=== PATIENT | female | born 1970 | race Caucasian/White ===

== ENCOUNTER 2017-07-17 10:48 | Emergency (ER) | payer MEDICAID ==
[~2017-07-17] VITALS: Ht 162.6 cm; Wt 86.0 kg
[~2017-07-17 10:48] MED LIST: ALBU6.7H INH; BACL10TA2 PO; DIPH1TAB PO; DOCU-28 PO; DULO60CA45 PO; GABA-532 PO; IBUP-1986 PO; LEVA15HF4 INH; LORA1TAB PO; MIRT15TA PO; MORP30CA16 PO; OMEP40CA37 PO; OXYC30TA88 PO; PHE12.5T PO; TEMA30CA5 PO; TOPI100T18 PO; ZIPR60CA2 PO; ZIPR80CA2 PO
[2017-07-17] MEDS ORDERED: ketorolac trometh inj. 60 MG/2 ML VIAL IM ONE (12:30)
[2017-07-17] MEDS ORDERED: bacitracin 15gm ointment TP ONE (13:20)
[2017-07-17 13:30] VITALS: BP 137/93
== END 2017-07-17 13:33 | disposition home or self-care (01) ==
LOC: ER 10:49
DX: T23.202A Burn of second degree of left hand, unspecified site, initial encounter (principal); M94.0 Chondrocostal junction syndrome [Tietze]; J44.9 Chronic obstructive pulmonary disease, unspecified; M19.90 Unspecified osteoarthritis, unspecified site; G89.29 Other chronic pain; F12.10 Cannabis abuse, uncomplicated; Z90.710 Acquired absence of both cervix and uterus; Z56.0 Unemployment, unspecified; Z88.8 Allergy status to other drugs, medicaments and biological substances; Z79.899 Other long term (current) drug therapy; X12.XXXA Contact with other hot fluids, initial encounter; Y93.89 Activity, other specified; Y92.89 Other specified places as the place of occurrence of the external cause; Y99.8 Other external cause status
CPT/HCPCS: 16020; 93005; 96372; 99284; A6446; J1885

== ENCOUNTER 2017-09-11 10:41 | Emergency (ER) | payer MEDICAID ==
[~2017-09-11] VITALS: Ht 165.1 cm; Wt 90.0 kg
[2017-09-11] MEDS ORDERED: ketorolac trometh inj. 60 MG/2 ML VIAL IM ONE (12:25)
[2017-09-11] MEDS ORDERED: LORazepam 2 mg/ml vial IM ONE (12:25)
[2017-09-11] MEDS ORDERED: diphenhydrAMINE 50 mg/ml inj IM ONE (12:25)
[2017-09-11 13:15] VITALS: BP 138/78
== END 2017-09-11 13:28 | disposition home or self-care (01) ==
LOC: ER 10:41
DX: M79.645 Pain in left finger(s) (principal); R51 Headache; J44.9 Chronic obstructive pulmonary disease, unspecified; M19.90 Unspecified osteoarthritis, unspecified site; F12.10 Cannabis abuse, uncomplicated; G89.29 Other chronic pain; Z90.710 Acquired absence of both cervix and uterus; Z56.0 Unemployment, unspecified; Z86.19 Personal history of other infectious and parasitic diseases; Z88.8 Allergy status to other drugs, medicaments and biological substances; Z79.899 Other long term (current) drug therapy
CPT/HCPCS: 70450; 73140; 96372; 99284; J1200; J1885; J2060

== ENCOUNTER 2017-11-18 10:20 | Emergency (ER) | payer MEDICAID ==
[~2017-11-18] VITALS: Ht 162.6 cm; Wt 89.0 kg
[2017-11-18] MEDS ORDERED: ketorolac trometh inj. 60 MG/2 ML VIAL IM ONE (12:00)
[2017-11-18] MEDS ORDERED: ketorolac trometh. 30mg/ml inj. ONE (12:03)
[2017-11-18 12:16] VITALS: BP 162/69
== END 2017-11-18 12:18 | disposition home or self-care (01) ==
LOC: ER 10:20
DX: S90.01XA Contusion of right ankle, initial encounter (principal); M25.461 Effusion, right knee; M17.11 Unilateral primary osteoarthritis, right knee; J44.9 Chronic obstructive pulmonary disease, unspecified; G89.29 Other chronic pain; F12.10 Cannabis abuse, uncomplicated; Z86.19 Personal history of other infectious and parasitic diseases; Z90.710 Acquired absence of both cervix and uterus; Z56.0 Unemployment, unspecified; Z98.890 Other specified postprocedural states; Z88.8 Allergy status to other drugs, medicaments and biological substances; Z79.899 Other long term (current) drug therapy; W18.39XA Other fall on same level, initial encounter; Y93.89 Activity, other specified; Y92.89 Other specified places as the place of occurrence of the external cause; Y99.8 Other external cause status
CPT/HCPCS: 73564; 73610; 96372; 99284; J1885

== ENCOUNTER 2018-03-29 11:30 | Emergency (ER) | payer MEDICAID ==
[~2018-03-29] VITALS: Ht 162.6 cm; Wt 90.6 kg
[~2018-03-29 11:30] MED LIST changes: +BUPR1FIL17 SL; +CLON-527 PO; -DIPH1TAB PO; -LORA1TAB PO; -MORP30CA16 PO; -OMEP40CA37 PO; -OXYC30TA88 PO; +PANT-47 PO; -PHE12.5T PO; -TEMA30CA5 PO; +TRAM50TA2 PO; +ZIPR20CA2 PO; +ZIPR40CA2 PO; -ZIPR60CA2 PO; -ZIPR80CA2 PO
[2018-03-29 11:33] VITALS: BP 118/76
[2018-03-29] MEDS ORDERED: HYDROcodone/acetaminophen 10/325mg tab PO ONE (11:45)
[2018-03-29] MEDS ORDERED: TRAM50TA2 PO (12:29)
== END 2018-03-29 12:50 | disposition home or self-care (01) ==
LOC: ER 11:30
DX: M25.511 Pain in right shoulder (principal); J44.9 Chronic obstructive pulmonary disease, unspecified; M19.90 Unspecified osteoarthritis, unspecified site; G89.29 Other chronic pain; F12.90 Cannabis use, unspecified, uncomplicated; Z90.710 Acquired absence of both cervix and uterus; Z56.0 Unemployment, unspecified; Z88.8 Allergy status to other drugs, medicaments and biological substances
CPT/HCPCS: 73030; 99284

== ENCOUNTER 2018-04-05 06:33 | Emergency (ER) | payer MEDICAID ==
[~2018-04-05] VITALS: Ht 162.6 cm; Wt 88.6 kg
[2018-04-05] MEDS ORDERED: SUMAtriptan succ. 6 MG/0.5ml vial SQ ONE (07:20)
[2018-04-05 07:32] VITALS: BP 134/74
== END 2018-04-05 07:35 | disposition home or self-care (01) ==
LOC: ER 06:34
DX: S40.021A Contusion of right upper arm, initial encounter (principal); S43.401A Unspecified sprain of right shoulder joint, initial encounter; G43.909 Migraine, unspecified, not intractable, without status migrainosus; J44.9 Chronic obstructive pulmonary disease, unspecified; M19.90 Unspecified osteoarthritis, unspecified site; G89.29 Other chronic pain; F12.90 Cannabis use, unspecified, uncomplicated; Z90.710 Acquired absence of both cervix and uterus; Z98.890 Other specified postprocedural states; Z56.0 Unemployment, unspecified; Z88.8 Allergy status to other drugs, medicaments and biological substances; Z79.899 Other long term (current) drug therapy; W01.190A Fall on same level from slipping, tripping and stumbling with subsequent striking against furniture, initial encounter; Y93.89 Activity, other specified; Y92.003 Bedroom of unspecified non-institutional (private) residence as the place of occurrence of the external cause; Y99.8 Other external cause status
CPT/HCPCS: 29105; 99284; A4565; J3030

== ENCOUNTER 2018-05-01 03:17 | Emergency (ER) | payer MEDICAID ==
[~2018-05-01] VITALS: Ht 162.6 cm; Wt 86.0 kg
[~2018-05-01 03:17] MED LIST changes: -ALBU6.7H INH; +ALBU8.5H8 IH; -BUPR1FIL17 SL; +DIPH25CA83 PO; +HYDR-4353 PO; -IBUP-1986 PO; +LACT1CAP65 PO; +MELA3TAB PO; +PREN1TAB75 PO; +SUCR1TAB PO; -TRAM50TA2 PO
[2018-05-01 03:21] VITALS: BP 127/82
== END 2018-05-01 04:27 | disposition home or self-care (01) ==
LOC: ER 03:17
DX: S81.011A Laceration without foreign body, right knee, initial encounter (principal); M96.831 Postprocedural hemorrhage of a musculoskeletal structure following other procedure; J44.9 Chronic obstructive pulmonary disease, unspecified; M19.90 Unspecified osteoarthritis, unspecified site; G89.29 Other chronic pain; F12.90 Cannabis use, unspecified, uncomplicated; Z56.0 Unemployment, unspecified; Z90.710 Acquired absence of both cervix and uterus; Z98.890 Other specified postprocedural states; Z88.8 Allergy status to other drugs, medicaments and biological substances; Z79.899 Other long term (current) drug therapy; X58.XXXA Exposure to other specified factors, initial encounter; Y93.89 Activity, other specified; Y92.89 Other specified places as the place of occurrence of the external cause; Y99.9 Unspecified external cause status
CPT/HCPCS: 12001; 99284

== ENCOUNTER 2018-07-25 03:56 | Emergency (ER) | payer MEDICAID ==
[~2018-07-25] VITALS: Ht 162.6 cm; Wt 87.3 kg
[~2018-07-25 03:56] MED LIST changes: +TOP100T PO; -TOPI100T18 PO
[2018-07-25 04:00] VITALS: BP 125/89
[2018-07-25] MEDS ORDERED: acetaminophen 325mg tablet PO ONE (04:20)
[2018-07-25] MEDS ORDERED: proCHLORperazine 10 MG/2 ml inj IM ONE (04:20)
[2018-07-25] MEDS ORDERED: ketorolac trometh inj. 60 MG/2 ML VIAL IM ONE (04:20)
[2018-07-25] MEDS ORDERED: ondansetron 4mg rapidly disintigrating tab PO ONE (05:30)
[2018-07-25] MEDS ORDERED: ONDA8TAB6 PO (05:31)
== END 2018-07-25 05:44 | disposition home or self-care (01) ==
LOC: ER 03:56
DX: R51 Headache (principal); G89.29 Other chronic pain; M25.511 Pain in right shoulder; J44.9 Chronic obstructive pulmonary disease, unspecified; M19.90 Unspecified osteoarthritis, unspecified site; F12.90 Cannabis use, unspecified, uncomplicated; F17.200 Nicotine dependence, unspecified, uncomplicated; Z90.710 Acquired absence of both cervix and uterus; Z98.890 Other specified postprocedural states; Z56.0 Unemployment, unspecified; Z88.8 Allergy status to other drugs, medicaments and biological substances; Z79.899 Other long term (current) drug therapy
CPT/HCPCS: 29105; 96372; 99283; J0780; J1885

== ENCOUNTER 2018-08-03 15:18 | Emergency (ER) | payer MEDICAID ==
[~2018-08-03] VITALS: Ht 162.6 cm; Wt 88.7 kg
[~2018-08-03 15:18] MED LIST changes: +ONDA8TAB6 PO
[2018-08-03 15:28] VITALS: BP 125/80
--- NOTE | 2018-08-03 20:25 | NUR ---
NO RESPONSE FROM LOBBY AFTER 3 ATTEMPTS TO ROOM, CALL PLACED TO NUMBER ON FILE. MESSAGE LEFT EXPRESSING CONCERN FOR WELL BEING, AND ENCOURAGEMENT TO RETURN FOR EVALUATION. DR GOINS INFORMED
== END 2018-08-03 20:35 | disposition left against medical advice (07) ==
LOC: ER 15:19
DX: E86.0 Dehydration (principal); Z53.21 Procedure and treatment not carried out due to patient leaving prior to being seen by health care provider

== ENCOUNTER 2018-08-07 07:10 | Emergency (ER) | payer MEDICAID ==
[~2018-08-07] VITALS: Ht 162.6 cm; Wt 86.4 kg
[2018-08-07] MEDS ORDERED: PROC5TAB56 PO (08:38)
[2018-08-07] MEDS ORDERED: HYDR-3965 PO (08:38)
[2018-08-07] MEDS ORDERED: SUMA25TA35 PO (08:38)
[2018-08-07] MEDS ORDERED: dexamethasone sod phosphate 10mg/ml inj IV STA (08:39)
[2018-08-07] MEDS ORDERED: proCHLORperazine 10 MG/2 ml inj IV ONE (08:40)
[2018-08-07] MEDS ORDERED: diphenhydrAMINE 50 mg/ml inj IV ONE (08:40)
[2018-08-07] MEDS ORDERED: normal saline 1000ML IV soln IVB ONE (08:40)
[2018-08-07] MEDS ORDERED: SUMAtriptan succ. 6 MG/0.5ml vial SQ ONE (08:40)
[2018-08-07] MEDS ORDERED: ketorolac tromethamine 15mg/ml inj. IV ONE (08:40)
[2018-08-07] MEDS ORDERED: HYDROcodone/acetaminophen 5mg/325mg tablet PO ONE (08:45)
[2018-08-07 08:54] VITALS: BP 123/85
== END 2018-08-07 09:58 | disposition home or self-care (01) ==
LOC: ER 07:11
DX: G43.909 Migraine, unspecified, not intractable, without status migrainosus (principal); G89.29 Other chronic pain; M25.511 Pain in right shoulder; M25.561 Pain in right knee; H53.149 Visual discomfort, unspecified; J44.9 Chronic obstructive pulmonary disease, unspecified; M19.90 Unspecified osteoarthritis, unspecified site; F12.90 Cannabis use, unspecified, uncomplicated; Z90.710 Acquired absence of both cervix and uterus; Z98.890 Other specified postprocedural states; Z56.0 Unemployment, unspecified; Z88.1 Allergy status to other antibiotic agents; Z88.8 Allergy status to other drugs, medicaments and biological substances; Z79.899 Other long term (current) drug therapy
CPT/HCPCS: 96372; 96374; 96375; 99284; J0780; J1100; J1200; J1885; J7030; 96361; J3030

== ENCOUNTER 2018-09-26 05:01 | Emergency (ER) | payer MEDICAID ==
[~2018-09-26] VITALS: Ht 162.6 cm; Wt 77.2 kg
[~2018-09-26 05:01] MED LIST changes: +PROC5TAB56 PO; +SUMA25TA35 PO
[2018-09-26 05:14] VITALS: BP 112/70
== END 2018-09-26 07:08 | disposition left against medical advice (07) ==
LOC: ER 05:02
DX: R51 Headache (principal); Z53.21 Procedure and treatment not carried out due to patient leaving prior to being seen by health care provider

== ENCOUNTER 2018-09-26 07:39 | Emergency (ER) | payer MEDICAID ==
[~2018-09-26] VITALS: Ht 162.6 cm; Wt 84.6 kg
[2018-09-26 07:47] VITALS: BP 132/96
[2018-09-26] MEDS ORDERED: orphenadrine citrate 60mg/2ml inj. IM ONE (08:20)
[2018-09-26] MEDS ORDERED: diphenhydrAMINE 50 mg/ml inj IM ONE (08:20)
[2018-09-26] MEDS ORDERED: ketorolac tromethamine 15mg/ml inj. IM ONE (08:20)
[2018-09-26] MEDS ORDERED: cyclobenzaprine 10mg tablet PO ONE (08:50)
== END 2018-09-26 08:57 | disposition home or self-care (01) ==
LOC: ER 07:40
DX: G43.909 Migraine, unspecified, not intractable, without status migrainosus (principal); M62.838 Other muscle spasm; M54.2 Cervicalgia; J44.9 Chronic obstructive pulmonary disease, unspecified; F41.9 Anxiety disorder, unspecified; F32.9 Major depressive disorder, single episode, unspecified; G89.29 Other chronic pain; F17.200 Nicotine dependence, unspecified, uncomplicated; F12.10 Cannabis abuse, uncomplicated; Z88.8 Allergy status to other drugs, medicaments and biological substances; Z88.5 Allergy status to narcotic agent; Z79.899 Other long term (current) drug therapy; Z86.19 Personal history of other infectious and parasitic diseases; Z90.710 Acquired absence of both cervix and uterus; Z90.721 Acquired absence of ovaries, unilateral; Z56.0 Unemployment, unspecified
CPT/HCPCS: 96372; 99283; J1200; J1885; J2360

== ENCOUNTER 2018-10-08 09:17 | Day surgery (SDC) | payer MEDICAID ==
[2018-10-06 10:51] LABS: CLARITY,URINE CLEAR (Clear); COLOR,URINE YELLOW (Yellow); GLUCOSE, URINE NEGATIVE (Neg); KETONES,URINE NEGATIVE (Neg); LEUKOCYTE ESTERASE ,URINE NEGATIVE (Neg); NITRITES, URINE NEGATIVE (Neg); OCCULT BLOOD,URINE NEGATIVE (Neg); PH,URINE 6.5 (4.8-8.0); PROTEIN,URINE NEGATIVE (Neg); UROBILINOGEN,URINE 0.2 E.U/dL (0.2-1.0)
[2018-10-06 10:53] LABS: UA COLLECTION TYPE NON-SPECIFIED
[2018-10-06 11:02] LABS: BASOPHILS # (AUTO) 0.1 X10'3 (0-0.2); EOSINOPHILS # (AUTO) 0.1 X10'3 (0-0.9); EOSINOPHILS % (AUTO) 1.3 % (0-6); LYMPHOCYTES # (AUTO) 2.5 X10'3 (1.1-4.8); LYMPHOCYTES % (AUTO) 32.7 % (21-51); MEAN CORPUSCULAR HEMOGLOBIN 31.5 PG (27.0-31.0); MEAN CORPUSCULAR HGB CONC 33.3 g/dL (33.0-36.5); MEAN CORPUSCULAR VOLUME 94.5 FL (78-98); MEAN PLATELET VOLUME 9.2 FL (7.4-10.4); MONOCYTES # (AUTO) 0.4 X10'3 (0-0.9); MONOCYTES % (AUTO) 5.8 % (2-12); NEUTROPHILS # (AUTO) 4.5 X10'3 (1.8-7.7); NEUTROPHILS % (AUTO) 59.2 % (42-75); PRE OP HEMATOCRIT 41.7 % (35.0-45.0); PRE OP HEMOGLOBIN 13.9 g/dL (12.0-16.0); PRE OP PLATELET COUNT 202 X10'3 (140-440); RED BLOOD COUNT 4.42 X10'6 (4.20-5.60); RED CELL DISTRIBUTION WIDTH 13.5 % (11.5-14.5)
[2018-10-06 11:09] LABS: PRE OP PROTIME 10.1 SECONDS (9.0-12.0)
[2018-10-06 11:12] LABS: ALBUMIN 3.7 G/DL (3.4-5.0); ALBUMIN/GLOBULIN RATIO 1.2 (1.1-1.5); ALKALINE PHOSPHATASE 107 IU/L (46-116); BLOOD UREA NITROGEN 18 MG/DL (7-18); BUN/CREATININE RATIO 20.5 (6.6-38.0); CALCIUM 8.9 MG/DL (8.5-10.1); CHLORIDE 107 MMOL/L (99-107); CREATININE 0.88 MG/DL (0.40-0.90); PRE OP ALT 24 U/L (30-65); PRE OP ANION GAP 10 (8-16); PRE OP AST 11 U/L (10-37); PRE OP BILIRUB, TOTAL 0.2 MG/DL (0.0-1.0); PRE OP GLUCOSE 92 MG/DL (70-104); PRE OP POTASSIUM 4.1 MMOL/L (3.4-5.1); PRE OP SODIUM 140 MMOL/L (135-145); TOTAL CARBON DIOXIDE 23.2 MMOL/L (24-32); TOTAL PROTEIN 6.9 G/DL (6.4-8.2); eGFR 68 ML/MIN
[~2018-10-08] VITALS: Ht 162.6 cm; Wt 85.6 kg
[2018-10-08] VITALS (7 sets, daily range): BP systolic 104–134; BP diastolic 57–97
[~2018-10-08 09:17] MED LIST changes: +BUPIVAcaine/PF 2.5mg/ml (0.25%) 10ml vial ONE; +ceFAZolin 2gm in dextrose, iso 100 ML IV ONE; +famotidine 20mg tablet PO ONE; +ringers solution, lacted 1,000 ML IV SCH; +triamcinolone acetonide 40mg/ml inj ONE
[2018-10-08] MEDS ORDERED: fentaNYL/PF 50MCG/1 ML 2ML syringe ONE (11:08)
[2018-10-08] MEDS ORDERED: MIDAZolam 5mg/5ml vial ONE (11:08)
[2018-10-08] MEDS ORDERED: propofol inj 20 ML IV ONE (11:08)
[2018-10-08] MEDS ORDERED: ROPIVAcaine 0.5% (5mg/ml) 30ml vial ONE (11:12)
[2018-10-08] MEDS ORDERED: dexamethasone sod phosphate 10mg/ml inj ONE (11:19)
[2018-10-08] MEDS ORDERED: sevoflurane 250ml liquid IH ONE (11:19)
[2018-10-08] MEDS ORDERED: ringers solution, lacted 1,000 ML IV SCH (12:47)
[2018-10-08] MEDS ORDERED: ondansetron/PF 4mg/2ml inj IV PRN (12:50)
[2018-10-08] MEDS ORDERED: morphine 4 MG/ML inj SYRINge IV PRN ×2 (12:50)
[2018-10-08] MEDS ORDERED: meperidine/PF 25mg/ml syringe IV PRN ×3 (12:50)
[2018-10-08] MEDS ORDERED: proCHLORperazine 10 MG/2 ml inj IV PRN (12:50)
--- NOTE | 2018-10-08 13:10 | NUR ---
Received from OR via bed, accompanied by Anesthesiologist. Report received. Initial physical assessment done and recorded.
--- NOTE | 2018-10-08 14:05 | NUR ---
Discharge criteria met, discharge instructions given, demonstrates verbal understanding. Discharged home in good condition. No complaints of pain during post op period, no pain meds given no complaints
== END 2018-10-08 14:05 | disposition home or self-care (01) ==
LOC: PAS 09:17
PROVIDERS: ATTEND Orthopaedic Surgery
DX: M75.41 Impingement syndrome of right shoulder (principal); M19.011 Primary osteoarthritis, right shoulder; M94.211 Chondromalacia, right shoulder; M65.811 Other synovitis and tenosynovitis, right shoulder; M75.51 Bursitis of right shoulder; G40.909 Epilepsy, unspecified, not intractable, without status epilepticus; E66.8 Other obesity; F31.9 Bipolar disorder, unspecified; B18.2 Chronic viral hepatitis C; K22.70 Barrett's esophagus without dysplasia; M19.90 Unspecified osteoarthritis, unspecified site; F17.210 Nicotine dependence, cigarettes, uncomplicated; Z68.34 Body mass index [BMI] 34.0-34.9, adult; G89.4 Chronic pain syndrome; Z88.8 Allergy status to other drugs, medicaments and biological substances; Z79.899 Other long term (current) drug therapy
CPT/HCPCS: 29823; 29824; 36415; 80053; 81003; 82948; 85025; 85610; 85730; 93005; A6449; J0690; J1100; J2250; J2704; J3010; J3301; J3490; J7120; A4565; A6250; A7000; J2795; J7030

== ENCOUNTER 2018-11-25 04:42 | Emergency (ER) | payer MEDICAID ==
[~2018-11-25] VITALS: Ht 162.6 cm; Wt 83.0 kg
[~2018-11-25 04:42] MED LIST changes: -BUPIVAcaine/PF 2.5mg/ml (0.25%) 10ml vial ONE; -ceFAZolin 2gm in dextrose, iso 100 ML IV ONE; -famotidine 20mg tablet PO ONE; -ringers solution, lacted 1,000 ML IV SCH; -triamcinolone acetonide 40mg/ml inj ONE
[2018-11-25 04:45] VITALS: BP 123/63
[2018-11-25] MEDS ORDERED: ketorolac trometh inj. 60 MG/2 ML VIAL IM ONE (05:25)
== END 2018-11-25 06:06 | disposition home or self-care (01) ==
LOC: ER 04:43
DX: M25.511 Pain in right shoulder (principal); M25.552 Pain in left hip; G43.909 Migraine, unspecified, not intractable, without status migrainosus; J44.9 Chronic obstructive pulmonary disease, unspecified; M19.90 Unspecified osteoarthritis, unspecified site; G89.29 Other chronic pain; F12.90 Cannabis use, unspecified, uncomplicated; Z86.19 Personal history of other infectious and parasitic diseases; Z90.710 Acquired absence of both cervix and uterus; Z98.890 Other specified postprocedural states; Z56.0 Unemployment, unspecified; Z88.8 Allergy status to other drugs, medicaments and biological substances; Z79.899 Other long term (current) drug therapy
CPT/HCPCS: 73030; 73502; 96372; 99284; J1885

== ENCOUNTER 2019-04-29 07:48 | Day surgery (SDC) | payer MEDICAID ==
[2019-04-21 12:21] LABS: BASOPHILS # (AUTO) 0.1 X10'3 (0-0.2); BASOPHILS % (AUTO) 0.9 % (0-1); EOSINOPHILS # (AUTO) 0.1 X10'3 (0-0.9); EOSINOPHILS % (AUTO) 1.4 % (0-6); LYMPHOCYTES # (AUTO) 2.5 X10'3 (1.1-4.8); LYMPHOCYTES % (AUTO) 39.7 % (21-51); MEAN CORPUSCULAR HEMOGLOBIN 32.7 PG (27.0-31.0); MEAN CORPUSCULAR VOLUME 96.3 FL (78-98); MEAN PLATELET VOLUME 8.4 FL (7.4-10.4); MONOCYTES # (AUTO) 0.3 X10'3 (0-0.9); NEUTROPHILS # (AUTO) 3.3 X10'3 (1.8-7.7); PRE OP HEMATOCRIT 45.4 % (35.0-45.0); PRE OP HEMOGLOBIN 15.4 g/dL (12.0-16.0); PRE OP PLATELET COUNT 180 X10'3 (140-440); RED BLOOD COUNT 4.71 X10'6 (4.20-5.60); RED CELL DISTRIBUTION WIDTH 12.3 % (11.5-14.5)
[2019-04-21 12:32] LABS: PRE OP PROTIME 10.3 SECONDS (9.0-12.0)
[2019-04-21 12:33] LABS: ALBUMIN 3.8 G/DL (3.4-5.0); ALKALINE PHOSPHATASE 101 IU/L (46-116); BLOOD UREA NITROGEN 11 MG/DL (7-18); BUN/CREATININE RATIO 13.6 (6.6-38.0); CALCIUM 9.2 MG/DL (8.5-10.1); CHLORIDE 108 MMOL/L (99-107); CREATININE 0.81 MG/DL (0.40-0.90); PRE OP ALT 23 U/L (30-65); PRE OP ANION GAP 9 (8-16); PRE OP AST 10 U/L (10-37); PRE OP BILIRUB, TOTAL 0.3 MG/DL (0.0-1.0); PRE OP GLUCOSE 116 MG/DL (70-104); PRE OP POTASSIUM 4.4 MMOL/L (3.4-5.1); PRE OP SODIUM 142 MMOL/L (135-145); TOTAL CARBON DIOXIDE 25.2 MMOL/L (24-32); TOTAL PROTEIN 7.5 G/DL (6.4-8.2); eGFR 75 ML/MIN
[~2019-04-29] VITALS: Ht 162.6 cm; Wt 77.4 kg
[2019-04-29] VITALS (10 sets, daily range): BP systolic 107–165; BP diastolic 63–108
[~2019-04-29 07:48] MED LIST changes: -ALBU8.5H8 IH; -BACL10TA2 PO; +BUPIVAcaine/PF 2.5 mg/ml (0.25%) 30ml vial ONE; +CYCL-1 PO; -HYDR-4353 PO; +IPRA4AER IH; -LEVA15HF4 INH; -MELA3TAB PO; +MELA3TAB64 PO; -MIRT15TA PO; +POTA10CA44 PO; -PROC5TAB56 PO; -SUCR1TAB PO; -SUMA25TA35 PO; +albuterol 2.5 MG/3 ML nebule NEB ONE; +cefazolin/dext.iso 2gm/50ml 50 ML IV ONE; +clindamycin-Cleocin 900mg/D5W 50 ML IV ONE; +famotidine 20mg tablet PO ONE; +ringers solution, lacted 1,000 ML IV SCH; +triamcinolone acetonide 40mg/ml inj ONE
[2019-04-29] MEDS ORDERED: sevoflurane 250ml liquid IH ONE (09:13)
[2019-04-29] MEDS ORDERED: midazolam 2 mg/2 ml injection ONE (09:15)
[2019-04-29] MEDS ORDERED: dexamethasone sod phosphate 4mg/ml inj. ONE (09:15)
[2019-04-29] MEDS ORDERED: ondansetron/PF 4mg/2ml inj ONE (09:15)
[2019-04-29] MEDS ORDERED: fentaNYL/PF 50MCG/1 ML 2ML syringe ONE (09:15)
[2019-04-29] MEDS ORDERED: LIDOcaine 2% (20mg/ml) 5ml vial ONE (09:16)
[2019-04-29] MEDS ORDERED: propofol inj 20 ML IV ONE (09:16)
[2019-04-29] MEDS ORDERED: ketorolac trometh. 30mg/ml inj. ONE (09:16)
[2019-04-29] MEDS ORDERED: ringers solution, lacted 1,000 ML IV SCH (10:02)
[2019-04-29] MEDS ORDERED: fentaNYL/PF 50MCG/1 ML 2ML syringe IV PRN ×2 (10:05)
[2019-04-29] MEDS ORDERED: labetalol 20mg/4ml (5mg/ml) syringe IV PRN (10:05)
[2019-04-29] MEDS ORDERED: ondansetron/PF 4mg/2ml inj IV PRN (10:05)
[2019-04-29] MEDS ORDERED: morphine 4 MG/ML inj SYRINge IV PRN ×2 (10:05)
[2019-04-29] MEDS ORDERED: hydrALAZINE 20mg/ml inj. IV PRN (10:05)
--- NOTE | 2019-04-29 10:45 | NUR ---
Received from OR via BED , accompanied by Anesthesiologist DR WATSON and report given by Anesthesiolgist. PATIENT WAKING UP, DENIES PAIN, V/S WNL, NEUROVASCULAR CHECKS INTACT, 20G PIV RUE , DRESSING TO BILATERAL KNEES CDI W/ COLD POWDER PACK AND SCD ON.
--- NOTE | 2019-04-29 11:25 | NUR ---
PATIENT A&OX4, DENIES PAIN, V/S WNL, NEUROVASCULAR CHECKS INTACT, 20G PIV D/C WITH NO COMPLICATIONS OBSERVED , DRESSING TO BILATERAL KNEES CDI W/ COLD POWDER PACK , SCD OFF. I HAVE REVIEWED D/C INSTRUCTIONS WITH PATIENT AND FAMILY AND THEY HAVE VERBALIZED UNDERSTANDING. PATIENT D/C HOME WITH ALL BELONGINGS AND FAMILY GAVE TRANSPORT HOME.
== END 2019-04-29 11:25 | disposition home or self-care (01) ==
LOC: PAS 07:48
PROVIDERS: ATTEND Orthopaedic Surgery
DX: S83.231A Complex tear of medial meniscus, current injury, right knee, initial encounter (principal); S83.271A Complex tear of lateral meniscus, current injury, right knee, initial encounter; S83.232A Complex tear of medial meniscus, current injury, left knee, initial encounter; S83.272A Complex tear of lateral meniscus, current injury, left knee, initial encounter; M22.42 Chondromalacia patellae, left knee; M22.41 Chondromalacia patellae, right knee; M17.0 Bilateral primary osteoarthritis of knee; F31.9 Bipolar disorder, unspecified; G89.4 Chronic pain syndrome; B18.2 Chronic viral hepatitis C; G40.909 Epilepsy, unspecified, not intractable, without status epilepticus; M19.011 Primary osteoarthritis, right shoulder; Z98.890 Other specified postprocedural states; Z90.710 Acquired absence of both cervix and uterus; F17.210 Nicotine dependence, cigarettes, uncomplicated; J44.9 Chronic obstructive pulmonary disease, unspecified; G43.909 Migraine, unspecified, not intractable, without status migrainosus; Z88.8 Allergy status to other drugs, medicaments and biological substances; Z79.899 Other long term (current) drug therapy; X58.XXXA Exposure to other specified factors, initial encounter; Y93.89 Activity, other specified; Y92.89 Other specified places as the place of occurrence of the external cause; Y99.8 Other external cause status
CPT/HCPCS: 29879; 29880; 36415; 80053; 82948; 85025; 85610; 85730; 93005; J1100; J1885; J2001; J2250; J2405; J2704; J3010; J3301; J3490; A4215; A4618; A6250; A6449; A7000; J7120

== ENCOUNTER 2019-09-12 08:37 | Emergency (ER) | payer MEDICAID ==
[~2019-09-12] VITALS: Ht 162.6 cm; Wt 85.9 kg
[~2019-09-12 08:37] MED LIST changes: -BUPIVAcaine/PF 2.5 mg/ml (0.25%) 30ml vial ONE; +MELA3TAB39 PO; -MELA3TAB64 PO; -albuterol 2.5 MG/3 ML nebule NEB ONE; -cefazolin/dext.iso 2gm/50ml 50 ML IV ONE; -clindamycin-Cleocin 900mg/D5W 50 ML IV ONE; -famotidine 20mg tablet PO ONE; -ringers solution, lacted 1,000 ML IV SCH; -triamcinolone acetonide 40mg/ml inj ONE
[2019-09-12 08:49] VITALS: BP 111/71
--- NOTE | 2019-09-12 09:43 | NUR ---
Pt was having nerve conduction study at her orthopedist office and they did a US of the knee and told her she had pockets of fluid and she needed to go to a clinic or the ED.
[2019-09-12] MEDS ORDERED: ketorolac tromethamine 15mg/ml inj. IM ONE (10:00)
== END 2019-09-12 10:40 | disposition home or self-care (01) ==
LOC: ER 08:38
DX: M25.562 Pain in left knee (principal); G89.29 Other chronic pain; G43.909 Migraine, unspecified, not intractable, without status migrainosus; J44.9 Chronic obstructive pulmonary disease, unspecified; M19.90 Unspecified osteoarthritis, unspecified site; F12.90 Cannabis use, unspecified, uncomplicated; Z56.0 Unemployment, unspecified; Z90.710 Acquired absence of both cervix and uterus; Z98.890 Other specified postprocedural states; Z88.8 Allergy status to other drugs, medicaments and biological substances; Z79.899 Other long term (current) drug therapy
CPT/HCPCS: 29505; 96372; 99283; J1885

== ENCOUNTER 2020-01-02 11:18 | Emergency (ER) | payer MEDICAID | END 2020-01-02 12:45 | disposition left against medical advice (07) | LOC: ER 11:19 | DX: R33.9 Retention of urine, unspecified (principal); Z53.21 Procedure and treatment not carried out due to patient leaving prior to being seen by health care provider ==

== ENCOUNTER 2021-01-07 06:49 | Emergency (ER) | payer MEDICAID ==
[~2021-01-07] VITALS: Ht 162.6 cm; Wt 81.8 kg
[2021-01-07 06:55] VITALS: BP 104/67
[2021-01-07] MEDS ORDERED: SULF1TAB49 PO (07:29)
[2021-01-07] MEDS ORDERED: CEPH-585 PO (07:29)
[2021-01-07] MEDS ORDERED: acetaminophen 325mg tablet PO ONE (07:30)
== END 2021-01-07 07:50 | disposition home or self-care (01) ==
LOC: ER 06:49
DX: L02.811 Cutaneous abscess of head [any part, except face] (principal); R59.0 Localized enlarged lymph nodes; F41.9 Anxiety disorder, unspecified; F32.9 Major depressive disorder, single episode, unspecified; Z56.0 Unemployment, unspecified; Z88.8 Allergy status to other drugs, medicaments and biological substances
CPT/HCPCS: 87070; 87077; 87186; 99283

== ENCOUNTER 2021-11-24 15:01 | Emergency (ER) | payer MEDICAID ==
[~2021-11-24 15:01] MED LIST changes: +CEPH-585 PO; -DULO60CA45 PO; +DULO60CA60 PO
== END 2021-11-24 17:25 | disposition left against medical advice (07) ==
LOC: ER 15:01
DX: M54.9 Dorsalgia, unspecified (principal); Z53.21 Procedure and treatment not carried out due to patient leaving prior to being seen by health care provider

== ENCOUNTER 2021-11-25 06:30 | Emergency (ER) | payer MEDICAID ==
[~2021-11-25] VITALS: Ht 162.6 cm; Wt 81.8 kg
[2021-11-25 06:39] VITALS: BP 128/74
--- NOTE | 2021-11-25 07:15 | NUR ---
Brought in by her . Pt stated that she fell backwards and landed on her back. Now has pain R mid-back down to lower back. "Hurts to breathe." Lungs clear in all gutierrez and speaks in full sentences.
--- NOTE | 2021-11-25 08:20 | NUR ---
Placed an sharmin wrap around pt's L wrist splint per Dr. Noguera.
--- NOTE | 2021-11-25 08:43 | NUR ---
Pt and left with formal discharge.
== END 2021-11-25 08:43 | disposition home or self-care (01) ==
LOC: ER 06:31
DX: M54.50 Low back pain, unspecified (principal); G89.29 Other chronic pain; J44.9 Chronic obstructive pulmonary disease, unspecified; F41.9 Anxiety disorder, unspecified; F32.A Depression, unspecified; F12.10 Cannabis abuse, uncomplicated; Z56.0 Unemployment, unspecified; Z88.8 Allergy status to other drugs, medicaments and biological substances; Z88.6 Allergy status to analgesic agent; Z79.899 Other long term (current) drug therapy; W19.XXXA Unspecified fall, initial encounter; Y93.89 Activity, other specified; Y92.89 Other specified places as the place of occurrence of the external cause; Y99.8 Other external cause status
CPT/HCPCS: 72100; 99284

== ENCOUNTER 2023-11-12 05:24 | Emergency (ER) | payer MEDICAID ==
[~2023-11-12] VITALS: Ht 162.6 cm; Wt 75.0 kg
[~2023-11-12 05:24] MED LIST changes: -CEPH-585 PO; -POTA10CA44 PO; +POTA10CA85 PO
[2023-11-12 05:30] VITALS: TEMP 97.4
[2023-11-12] MEDS: LIDOcaine 1% (10mg/ml)w/preservative inj. 20ml MDV SQ ONE (07:58)
[2023-11-12] MEDS ORDERED: tetanus & diphtheria toxoid (Td) vaccine 0.5ml IMVAC ONE (08:50)
[2023-11-12] MEDS ORDERED: LACT1CAP76 PO (08:59)
[2023-11-12] MEDS ORDERED: AMOX-580 PO (08:59)
[2023-11-12] MEDS ORDERED: HYDR-3965 PO (09:27)
[2023-11-12] MEDS ORDERED: diph,pertuss (acell), tet (DTaP-PEDs)/PF (PEDIATRIC) 0.5ml syringe IMVAC ONE (09:30)
[2023-11-12] MEDS: TETanus/Pertussis (Acell)/Diphther VAC/PF (Tdap-Adult) 0.5ml syringe IMVAC ONE (09:47)
[2023-11-12 09:51] VITALS: BP 135/81; PULSE 64; RESP 18; O2SAT 98
== END 2023-11-12 09:53 | disposition home or self-care (01) ==
LOC: ER 05:24
DX: S61.412A Laceration without foreign body of left hand, initial encounter (principal); J44.9 Chronic obstructive pulmonary disease, unspecified; M19.90 Unspecified osteoarthritis, unspecified site; G89.29 Other chronic pain; F41.9 Anxiety disorder, unspecified; F32.A Depression, unspecified; Z90.710 Acquired absence of both cervix and uterus; F12.90 Cannabis use, unspecified, uncomplicated; Z88.8 Allergy status to other drugs, medicaments and biological substances; W18.30XA Fall on same level, unspecified, initial encounter; Y93.89 Activity, other specified; Y92.009 Unspecified place in unspecified non-institutional (private) residence as the place of occurrence of the external cause; Y99.8 Other external cause status
CPT/HCPCS: 73130; 90471; 90715; 99284; A6223; J7030; A6258; A6449

== ENCOUNTER 2024-01-26 14:05 | Emergency (ER) | payer MEDICAID ==
[~2024-01-26] VITALS: Ht 162.6 cm; Wt 75.0 kg
[~2024-01-26 14:05] MED LIST changes: +LACT1CAP76 PO; -POTA10CA85 PO; +POTA10CA95 PO
[2024-01-26 14:17] VITALS: BP 145/84; PULSE 78; RESP 18; TEMP 97.8; O2SAT 98
[2024-01-26] MEDS ORDERED: PERM60CR19 TOP (15:44)
[2024-01-27] MEDS ORDERED: CLIN-97 PO (14:38)
[2024-01-27] MEDS ORDERED: HYDR-3686 PO (14:38)
== END 2024-01-26 15:41 | disposition home or self-care (01) ==
LOC: ER 14:05
DX: S20.212A Contusion of left front wall of thorax, initial encounter (principal); S80.812A Abrasion, left lower leg, initial encounter; S80.811A Abrasion, right lower leg, initial encounter; S60.512A Abrasion of left hand, initial encounter; S60.511A Abrasion of right hand, initial encounter; G43.909 Migraine, unspecified, not intractable, without status migrainosus; J44.9 Chronic obstructive pulmonary disease, unspecified; M19.90 Unspecified osteoarthritis, unspecified site; G89.29 Other chronic pain; F12.90 Cannabis use, unspecified, uncomplicated; F41.9 Anxiety disorder, unspecified; F32.A Depression, unspecified; Z90.710 Acquired absence of both cervix and uterus; Z98.890 Other specified postprocedural states; Z56.0 Unemployment, unspecified; Z88.8 Allergy status to other drugs, medicaments and biological substances; Z79.899 Other long term (current) drug therapy; W18.39XA Other fall on same level, initial encounter; Y93.89 Activity, other specified; Y92.89 Other specified places as the place of occurrence of the external cause; Y99.8 Other external cause status
CPT/HCPCS: 71101; 99283

== ENCOUNTER 2024-01-27 12:59 | Emergency (ER) | payer MEDICAID ==
[~2024-01-27] VITALS: Ht 162.6 cm; Wt 68.2 kg
[~2024-01-27 12:59] MED LIST changes: +PERM60CR19 TOP
[2024-01-27 13:13] VITALS: BP 121/67; PULSE 97; RESP 16; O2SAT 96
[2024-01-27] MEDS ORDERED: CLIN-97 PO (14:38)
[2024-01-27] MEDS ORDERED: HYDR-3686 PO (14:38)
[2024-01-27 14:41] VITALS: TEMP 98.3
== END 2024-01-27 14:43 | disposition home or self-care (01) ==
LOC: ER 13:00
DX: R21 Rash and other nonspecific skin eruption (principal); F22 Delusional disorders; G25.81 Restless legs syndrome; F12.90 Cannabis use, unspecified, uncomplicated; G43.909 Migraine, unspecified, not intractable, without status migrainosus; J44.9 Chronic obstructive pulmonary disease, unspecified; M19.90 Unspecified osteoarthritis, unspecified site; G89.29 Other chronic pain; F32.A Depression, unspecified; Z90.49 Acquired absence of other specified parts of digestive tract; Z98.890 Other specified postprocedural states; Z56.0 Unemployment, unspecified; Z88.8 Allergy status to other drugs, medicaments and biological substances; Z79.899 Other long term (current) drug therapy
CPT/HCPCS: 99283

== ENCOUNTER 2024-01-30 09:51 | Emergency (ER) | payer MEDICAID, OTHER ==
[~2024-01-30] VITALS: Ht 162.6 cm; Wt 62.8 kg
[~2024-01-30 09:51] MED LIST changes: +CLIN-97 PO; +HYDR-3686 PO
[2024-01-30] MEDS: naproxen 500mg tablet PO ONE (12:15)
[2024-01-30] MEDS: baclofen 10mg tablet PO PRN (12:15)
[2024-01-30] MEDS ORDERED: NAPR-56 PO (13:07)
[2024-01-30] MEDS ORDERED: LIDO700A47 TOP (13:07)
[2024-01-30 13:18] VITALS: BP 129/67; PULSE 94; RESP 16; TEMP 98; O2SAT 99
== END 2024-01-30 13:19 | disposition home or self-care (01) ==
LOC: ER 09:52
DX: G89.29 Other chronic pain (principal); M54.50 Low back pain, unspecified; M25.562 Pain in left knee; G43.909 Migraine, unspecified, not intractable, without status migrainosus; F12.90 Cannabis use, unspecified, uncomplicated; J45.909 Unspecified asthma, uncomplicated; M19.90 Unspecified osteoarthritis, unspecified site; M54.9 Dorsalgia, unspecified; F41.9 Anxiety disorder, unspecified; F32.A Depression, unspecified; Z98.890 Other specified postprocedural states; Z90.710 Acquired absence of both cervix and uterus; Z56.0 Unemployment, unspecified; Z88.8 Allergy status to other drugs, medicaments and biological substances; Z79.2 Long term (current) use of antibiotics; Z79.899 Other long term (current) drug therapy
CPT/HCPCS: 72070; 73560; 99284

== ENCOUNTER 2024-02-01 20:29 | Emergency (ER) | payer MEDICAID ==
[~2024-02-01] VITALS: Ht 162.6 cm; Wt 65.3 kg
[~2024-02-01 20:29] MED LIST changes: +LIDO700A47 TOP; +NAPR-56 PO
[2024-02-01 20:31] VITALS: BP 102/60; PULSE 87; RESP 16; TEMP 97.7; O2SAT 100
== END 2024-02-01 21:15 | disposition home or self-care (01) ==
LOC: ER 20:30
DX: R21 Rash and other nonspecific skin eruption (principal); B86 Scabies; G43.909 Migraine, unspecified, not intractable, without status migrainosus; J44.9 Chronic obstructive pulmonary disease, unspecified; M19.90 Unspecified osteoarthritis, unspecified site; G89.29 Other chronic pain; F41.9 Anxiety disorder, unspecified; F32.A Depression, unspecified; F12.90 Cannabis use, unspecified, uncomplicated; Z88.8 Allergy status to other drugs, medicaments and biological substances; Z79.899 Other long term (current) drug therapy; Z79.2 Long term (current) use of antibiotics; Z90.710 Acquired absence of both cervix and uterus
CPT/HCPCS: 99281

== ENCOUNTER 2024-03-07 21:43 | Emergency (ER) | payer MEDICAID ==
[~2024-03-07] VITALS: Ht 162.6 cm; Wt 54.7 kg
[~2024-03-07 21:43] MED LIST changes: -HYDR-3686 PO; -NAPR-56 PO; -PERM60CR19 TOP
[2024-03-07] MEDS: amox tr/potassium clavulanate 875/125mg TAB PO ONE (22:19)
[2024-03-07] MEDS: HYDROcodone/acetaminophen 5mg/325mg tablet PO ONE (22:20)
[2024-03-07] MEDS: TETanus/Pertussis (Acell)/Diphther VAC/PF (Tdap-Adult) 0.5ml syringe IMVAC ONE (22:24)
--- NOTE | 2024-03-07 22:38 | NUR ---
MELISSA RESPONDED TO SCENE. Report # [id number].
[2024-03-07] MEDS ORDERED: AMOX-117 PO (23:33)
[2024-03-07] MEDS ORDERED: HYDR-3965 PO (23:33)
[2024-03-08 00:08] VITALS: BP 104/63; PULSE 77; RESP 14; TEMP 97.6; O2SAT 94
== END 2024-03-08 00:12 | disposition home or self-care (01) ==
LOC: ER 21:44
DX: S62.611A Displaced fracture of proximal phalanx of left index finger, initial encounter for closed fracture (principal); M25.561 Pain in right knee; G43.909 Migraine, unspecified, not intractable, without status migrainosus; J44.9 Chronic obstructive pulmonary disease, unspecified; M19.90 Unspecified osteoarthritis, unspecified site; F32.A Depression, unspecified; F12.90 Cannabis use, unspecified, uncomplicated; Z79.2 Long term (current) use of antibiotics; Z79.899 Other long term (current) drug therapy; Z90.710 Acquired absence of both cervix and uterus; W54.0XXA Bitten by dog, initial encounter; Y93.89 Activity, other specified; Y92.89 Other specified places as the place of occurrence of the external cause; Y99.8 Other external cause status
CPT/HCPCS: 29130; 73130; 73560; 73564; 90471; 90715; 99284

== ENCOUNTER 2024-03-17 13:13 | Emergency (ER) | payer MEDICAID ==
[~2024-03-17] VITALS: Ht 162.6 cm; Wt 64.0 kg
[~2024-03-17 13:13] MED LIST changes: +HYDR-3965 PO
[2024-03-17 13:17] VITALS: BP 103/64; PULSE 91; RESP 16; TEMP 98.5; O2SAT 98
== END 2024-03-17 14:00 | disposition home or self-care (01) ==
LOC: ER 13:13
DX: R07.81 Pleurodynia (principal); Z88.8 Allergy status to other drugs, medicaments and biological substances

== ENCOUNTER 2024-05-21 16:06 | Emergency (ER) | payer MEDICAID ==
[~2024-05-21] VITALS: Ht 162.6 cm; Wt 64.0 kg
[~2024-05-21 16:06] MED LIST changes: -HYDR-3965 PO; -ZIPR40CA2 PO; +ZIPR40CA45 PO
[2024-05-21 16:09] VITALS: BP 122/92; PULSE 96; RESP 16; O2SAT 99
[2024-05-21] MEDS: LORazepam 2 mg/ml vial IM ONE (18:05)
[2024-05-21] MEDS ORDERED: HYDR-3686 PO (18:13)
[2024-05-21 18:16] VITALS: TEMP 97.8
== END 2024-05-21 18:18 | disposition home or self-care (01) ==
LOC: ER 16:07
DX: F41.9 Anxiety disorder, unspecified (principal); M19.90 Unspecified osteoarthritis, unspecified site; J44.9 Chronic obstructive pulmonary disease, unspecified; G43.909 Migraine, unspecified, not intractable, without status migrainosus; F12.90 Cannabis use, unspecified, uncomplicated; Z88.8 Allergy status to other drugs, medicaments and biological substances; Z90.710 Acquired absence of both cervix and uterus; Z90.721 Acquired absence of ovaries, unilateral
CPT/HCPCS: 96372; 99283; J2060

== ENCOUNTER 2024-09-08 05:54 | Outpatient (CLI) | payer MEDICAID | END 2024-09-08 23:59 | disposition home or self-care (01) | LOC: MRI02 05:54 | PROVIDERS: ATTEND Physician Assistant | DX: S62.001A Unspecified fracture of navicular [scaphoid] bone of right wrist, initial encounter for closed fracture (principal); S63.8X1A Sprain of other part of right wrist and hand, initial encounter; M18.12 Unilateral primary osteoarthritis of first carpometacarpal joint, left hand; M19.042 Primary osteoarthritis, left hand; M25.531 Pain in right wrist; Y93.9 Activity, unspecified; Y92.89 Other specified places as the place of occurrence of the external cause; X58.XXXA Exposure to other specified factors, initial encounter; Y99.8 Other external cause status | CPT/HCPCS: 73221 ==